=== PATIENT | female | born 1965 | race Caucasian/White ===

== ENCOUNTER → 2021-12-16 | Day surgery (SDC) | payer MEDICAID ==
[2021-12-14 15:59] VITALS: BMI 34.7
[~2021-12-16] MED LIST: Acetaminophen 325 MG TAB PO PRN; Bupivacaine PF 0.5% 30 ML VIAL ONE; CEFAZOLIN 2 GM VIAL ONE; EPINEPHrine 1 MG/ML AMP ONE; HYDROcodone/Acetaminophen 5/325 mg Tablet PO PRN; Lidocaine 1% MPF 2 ML VIAL ONE; Midazolam HCl 2 mg/2 ml Vial ONE
== END ==
LOC: CSHSDC 05:52
PROVIDERS: ATTEND Surgery
PROC: 0JH60XZ Insertion of Tunneled Vascular Access Device into Chest Subcutaneous Tissue and Fascia, Open Approach (ICD-10-PCS; principal; 2021-12-16)
DX: C53.8 Malignant neoplasm of overlapping sites of cervix uteri (principal); D63.0 Anemia in neoplastic disease; J45.909 Unspecified asthma, uncomplicated; Z98.890 Other specified postprocedural states; Z87.891 Personal history of nicotine dependence; Z88.1 Allergy status to other antibiotic agents
CPT/HCPCS: 71045; C1788; J0171; J1642; J2250; S0020

== ENCOUNTER 2023-11-08 09:11 | Outpatient (CLI) | payer OTHER ==
[2023-11-08] MEDS ORDERED: Magnevist 469MG/ML 20 ML VIAL ONE (13:07)
== END 2023-11-08 09:12 | disposition home or self-care (01) ==
LOC: CSHMRI 09:11
PROVIDERS: ATTEND Internal Medicine
DX: N93.8 Other specified abnormal uterine and vaginal bleeding (principal); C53.9 Malignant neoplasm of cervix uteri, unspecified
CPT/HCPCS: 72197

== ENCOUNTER 2024-09-03 08:42 | Outpatient (CLI) | payer OTHER, MEDICAID | END 2024-09-03 08:43 | disposition home or self-care (01) | LOC: CSHMRI 08:42 | PROVIDERS: ATTEND Internal Medicine | DX: C53.9 Malignant neoplasm of cervix uteri, unspecified (principal); D53.9 Nutritional anemia, unspecified; D50.9 Iron deficiency anemia, unspecified; Z79.899 Other long term (current) drug therapy | CPT/HCPCS: 72197 ==

== ENCOUNTER 2024-10-07 09:48 | Outpatient (CLI) | payer OTHER, MEDICAID ==
[2024-10-07] MEDS ORDERED: Iopamidol 300 61% 100 ML VIAL FS ONE (10:14)
== END 2024-10-07 09:49 | disposition home or self-care (01) ==
LOC: CSHCT 09:48
PROVIDERS: ATTEND Urology
DX: N13.30 Unspecified hydronephrosis (principal); C53.8 Malignant neoplasm of overlapping sites of cervix uteri; N39.498 Other specified urinary incontinence; D64.9 Anemia, unspecified; Z96.0 Presence of urogenital implants
CPT/HCPCS: 74178